=== PATIENT | female | born 1990 | race Hispanic/Latino ===

== ENCOUNTER 2017-04-23 12:04 | Emergency (ER) | payer MEDICAID, OTHER ==
[~2017-04-23 12:04] MED LIST: IBUP-2070 PO; IRON-10 PO
[2017-04-23 12:38] LABS: APPEARANCE,URINE Cloudy (CLEAR); BILIRUBIN,URINE Negative (NEGATIVE); COLOR,URINE Dark Yellow (YELLOW); GLUCOSE, URINE (UA) Negative (NEGATIVE); KETONES,URINE Trace mg/dL (NEGATIVE); LEUKOCYTE ESTERASE ,URINE Small (NEGATIVE); NITRATE,URINE Negative (NEGATIVE); OCCULT BLOOD,URINE Negative (NEGATIVE); PH,URINE 5.5 (5.0-8.0); PROTEIN,URINE POS 1+ (NEGATIVE)
[2017-04-23 12:43] LABS: HCG,QUAL RESULT POSITIVE (NEGATIVE)
[2017-04-23] MEDS ORDERED: ONDANSETRON HCL 4 MG/2 ML VIAL ONE (12:50)
[2017-04-23] MEDS ORDERED: ACETAMINOPHEN 325 MG TAB ONE (12:50)
[2017-04-23 12:52] LABS: BACTERIA,URINE Moderate /HPF (None Seen); MUCUS,URINE Moderate LPF (None Seen); SQUAMOUS EPITHELIAL CELL,UR Few /LPF (0-2); WBC,URINE 0-1 /HPF (0-1)
[2017-04-23 13:17] LABS: BASOPHILS % (AUTO) 0.4 % (0.0-5.0); EOSINOPHILS % (AUTO) 0.3 % (0.0-8.0); HEMATOCRIT 41.2 % (36-48); LYMPHOCYTES % (AUTO) 16.2 % (21.0-51.0); MEAN CORPUSCULAR HEMOGLOBIN 25.8 pg (27.0-33.0); MEAN CORPUSCULAR HGB CONC 33.6 g/dL (32.0-36.0); MEAN CORPUSCULAR VOLUME 76.8 fL (79-99); MONOCYTES % (AUTO) 6.8 % (3.0-13.0); NEUTROPHILS % (AUTO) 76.3 % (40.0-77.0); NUCLEATED RED BLOOD CELLS 0.1 % (0.0-0.19); PLATELET COUNT (AUTO) 289 K/uL (130-400); RED BLOOD CELL COUNT(AUTO) 5.37 MIL/uL (4.00-5.50); WHITE BLOOD COUNT (AUTO) 7.1 K/uL (4.8-10.8)
[2017-04-23 13:25] LABS: CREATININE 0.6 mg/dL (0.5-1.5)
[2017-04-23 13:51] LABS: BILIRUBIN,TOTAL 0.2 mg/dL (0.2-1.0); TOTAL PROTEIN, SERUM 7.5 g/dL (6.0-8.3)
== END 2017-04-23 16:38 | disposition home or self-care (01) ==
LOC: EDH 12:04
DX: O26.611 Liver and biliary tract disorders in pregnancy, first trimester (principal); K80.20 Calculus of gallbladder without cholecystitis without obstruction; R79.89 Other specified abnormal findings of blood chemistry; Z79.899 Other long term (current) drug therapy; Z3A.12 12 weeks gestation of pregnancy
CPT/HCPCS: 36415; 76705; 76801; 80053; 81001; 81025; 83690; 84702; 85025; 96374; 99285; J2405

== ENCOUNTER 2017-05-18 17:03 | Emergency (ER) | payer MEDICAID, OTHER ==
[2017-05-18 18:01] LABS: RAPID GROUP A STREP NEGATIVE (NEGATIVE)
[2017-05-18 18:04] LABS: BILIRUBIN,URINE Negative (NEGATIVE); COLOR,URINE Yellow (YELLOW); GLUCOSE, URINE (UA) Negative (NEGATIVE); KETONES,URINE Trace mg/dL (NEGATIVE); LEUKOCYTE ESTERASE ,URINE Trace (NEGATIVE); NITRATE,URINE Negative (NEGATIVE); OCCULT BLOOD,URINE Negative (NEGATIVE); PH,URINE 6.5 (5.0-8.0); PROTEIN,URINE Trace (NEGATIVE)
[2017-05-18 18:13] LABS: APPEARANCE,URINE SLIGHTLY CLOUDY (CLEAR)
[2017-05-18 18:14] LABS: HCG,QUAL RESULT POSITIVE (NEGATIVE)
[2017-05-18 18:16] LABS: RBC,URINE 0-1 /HPF (0-1)
[2017-05-18 18:17] LABS: BACTERIA,URINE Few /HPF (None Seen); MUCUS,URINE Moderate LPF (None Seen); SQUAMOUS EPITHELIAL CELL,UR Moderate /LPF (0-2)
== END 2017-05-18 18:53 | disposition home or self-care (01) ==
LOC: EDH 17:03
DX: J01.10 Acute frontal sinusitis, unspecified (principal); R50.81 Fever presenting with conditions classified elsewhere; R05 Cough; J02.9 Acute pharyngitis, unspecified; M79.1 Myalgia
CPT/HCPCS: 81001; 81025; 87804; 87880

== ENCOUNTER 2017-06-13 04:50 | Emergency (ER) | payer MEDICAID, OTHER ==
[2017-06-13 05:27] LABS: BASOPHILS % (AUTO) 0.3 % (0.0-5.0); EOSINOPHILS % (AUTO) 0.3 % (0.0-8.0); HEMATOCRIT 37.4 % (36-48); MEAN CORPUSCULAR HEMOGLOBIN 26.5 pg (27.0-33.0); MEAN CORPUSCULAR HGB CONC 33.5 g/dL (32.0-36.0); MONOCYTES % (AUTO) 7.4 % (3.0-13.0); PLATELET COUNT (AUTO) 270 K/uL (130-400); RED BLOOD CELL COUNT(AUTO) 4.74 MIL/uL (4.00-5.50)
[2017-06-13 05:32] LABS: CREATININE 0.5 mg/dL (0.5-1.5); POTASSIUM 3.6 mmol/L (3.5-5.1)
[2017-06-13 05:36] LABS: ALBUMIN 2.6 g/dL (3.5-5.0); BILIRUBIN,TOTAL 0.2 mg/dL (0.2-1.0)
[2017-06-13 06:15] LABS: BILIRUBIN,URINE Negative (NEGATIVE); COLOR,URINE Yellow (YELLOW); GLUCOSE, URINE (UA) Negative (NEGATIVE); KETONES,URINE Negative (NEGATIVE); LEUKOCYTE ESTERASE ,URINE Negative (NEGATIVE); NITRATE,URINE Negative (NEGATIVE); OCCULT BLOOD,URINE Negative (NEGATIVE); PH,URINE 5.5 (5.0-8.0); PROTEIN,URINE Trace (NEGATIVE)
[2017-06-13 06:19] LABS: APPEARANCE,URINE CLEAR (CLEAR)
== END 2017-06-13 09:44 | disposition home or self-care (01) ==
LOC: EDH 04:50
DX: O99.612 Diseases of the digestive system complicating pregnancy, second trimester (principal); K80.20 Calculus of gallbladder without cholecystitis without obstruction; Z98.890 Other specified postprocedural states; Z3A.01 Less than 8 weeks gestation of pregnancy
CPT/HCPCS: 36415; 76705; 80053; 81003; 82150; 83690; 85025; 93005

== ENCOUNTER 2017-12-25 11:08 | Emergency (ER) | payer OTHER ==
[~2017-12-25 11:08] MED LIST changes: +PREN-154 PO
== END 2017-12-25 11:56 | disposition home or self-care (01) ==
LOC: EDH 11:08
DX: J01.10 Acute frontal sinusitis, unspecified (principal)
CPT/HCPCS: 99281

== ENCOUNTER 2018-07-26 17:45 | Emergency (ER) | payer MEDICAID, OTHER ==
[2018-07-26] MEDS ORDERED: ONDANSETRON HCL 4 MG/2 ML VIAL ONE (18:05)
[2018-07-26 18:29] LABS: APPEARANCE,URINE Clear (CLEAR); BILIRUBIN,URINE Negative (NEGATIVE); COLOR,URINE Yellow (YELLOW); GLUCOSE, URINE (UA) Negative (NEGATIVE); KETONES,URINE 15 mg/dL (NEGATIVE); LEUKOCYTE ESTERASE ,URINE Negative (NEGATIVE); NITRATE,URINE Negative (NEGATIVE); OCCULT BLOOD,URINE Negative (NEGATIVE); PH,URINE 5.5 (5.0-8.0); PROTEIN,URINE Trace mg/dL (NEGATIVE)
[2018-07-26 18:30] LABS: HCG,QUAL RESULT NEGATIVE (NEGATIVE)
[2018-07-26 18:34] LABS: BASOPHILS % (AUTO) 0.2 % (0.0-5.0); HEMATOCRIT 45.4 % (36-48); LYMPHOCYTES % (AUTO) 7.5 % (21.0-51.0); MEAN CORPUSCULAR HEMOGLOBIN 26.8 pg (27.0-33.0); MEAN CORPUSCULAR HGB CONC 33.2 g/dL (32.0-36.0); MEAN CORPUSCULAR VOLUME 80.6 fL (79-99); MONOCYTES % (AUTO) 5.9 % (3.0-13.0); NEUTROPHILS % (AUTO) 85.4 % (40.0-77.0); NUCLEATED RED BLOOD CELLS 0.1 % (0.0-0.19); PLATELET COUNT (AUTO) 240 K/uL (130-400); RED BLOOD CELL COUNT(AUTO) 5.63 MIL/uL (4.00-5.50); WHITE BLOOD COUNT (AUTO) 7.7 K/uL (4.8-10.8)
[2018-07-26 18:43] LABS: BACTERIA,URINE Rare /HPF (None Seen); RBC,URINE 0-1 /HPF (0-1); SQUAMOUS EPITHELIAL CELL,UR Few /HPF (0-2); WBC,URINE 0-1 /HPF (0-1)
[2018-07-26 18:48] LABS: CREATININE 0.6 mg/dL (0.5-1.5); POTASSIUM 3.7 mmol/L (3.5-5.1)
[2018-07-26 18:54] LABS: BILIRUBIN,TOTAL 0.3 mg/dL (0.2-1.0); TOTAL PROTEIN, SERUM 8.2 g/dL (6.0-8.3)
== END 2018-07-26 19:42 | disposition home or self-care (01) ==
LOC: EDH 17:45
DX: J10.1 Influenza due to other identified influenza virus with other respiratory manifestations (principal)
CPT/HCPCS: 36415; 76705; 80053; 81001; 81025; 83690; 85025; 87040; 87804 ×2; 96361; 96374; 99285; J2405

== ENCOUNTER 2018-10-25 15:20 | Emergency (ER) | payer MEDICAID, OTHER ==
[2018-10-25] MEDS ORDERED: FAMOTIDINE/PF 20 MG/2 ML VIAL IV ONE (15:48)
[2018-10-25] MEDS ORDERED: ONDANSETRON ODT 4 MG TAB ONE (15:48)
[2018-10-25] MEDS ORDERED: HYOSCYAMINE SULFATE 0.125 MG TAB.SUBL SL ONE (15:48)
[2018-10-25] MEDS ORDERED: ONDANSETRON HCL 4 MG/2 ML VIAL ONE (15:49)
[2018-10-25] MEDS ORDERED: SODIUM CHLORIDE 0.9% 1000ML 1,000 ML IV ONE (15:50)
[2018-10-25 15:51] LABS: BASOPHILS % (AUTO) 0.4 % (0.0-5.0); HEMATOCRIT 44.1 % (36-48); LYMPHOCYTES % (AUTO) 17.1 % (21.0-51.0); MEAN CORPUSCULAR HEMOGLOBIN 26.9 pg (27.0-33.0); MEAN CORPUSCULAR HGB CONC 33.6 g/dL (32.0-36.0); NEUTROPHILS % (AUTO) 73.5 % (40.0-77.0); PLATELET COUNT (AUTO) 275 K/uL (130-400); RED BLOOD CELL COUNT(AUTO) 5.51 MIL/uL (4.00-5.50); RED CELL DISTRIBUTION WIDTH 14.2 % (11.0-15.5); WHITE BLOOD COUNT (AUTO) 5.9 K/uL (4.8-10.8)
[2018-10-25 16:02] LABS: CREATININE 0.7 mg/dL (0.5-1.5); POTASSIUM 3.3 mmol/L (3.5-5.1)
[2018-10-25 16:02] LABS: APPEARANCE,URINE SL CLOUDY (CLEAR); BILIRUBIN,URINE NEGATIVE (NEGATIVE); COLOR,URINE YELLOW (YELLOW); GLUCOSE, URINE (UA) NEGATIVE (NEGATIVE); KETONES,URINE NEGATIVE (NEGATIVE); LEUKOCYTE ESTERASE ,URINE NEGATIVE (NEGATIVE); NITRATE,URINE NEGATIVE (NEGATIVE); OCCULT BLOOD,URINE NEGATIVE (NEGATIVE); PROTEIN,URINE NEGATIVE (NEGATIVE)
[2018-10-25 16:06] LABS: ALBUMIN 3.6 g/dL (3.5-5.0); BILIRUBIN,DIRECT 0.1 mg/dL (0.0-0.3); BILIRUBIN,TOTAL 0.3 mg/dL (0.2-1.0); TOTAL PROTEIN, SERUM 7.8 g/dL (6.0-8.3)
[2018-10-25 16:25] LABS: BACTERIA,URINE Few /HPF (None Seen); RBC,URINE 0-1 /HPF (0-1); SQUAMOUS EPITHELIAL CELL,UR Moderate /HPF (0-2); WBC,URINE 0-1 /HPF (0-1)
[2018-10-25 16:26] LABS: MUCUS,URINE Few LPF (None Seen)
[2018-10-25] MEDS ORDERED: KETOROLAC TROMETHAMINE 30MG/ML ONE (17:07)
== END 2018-10-25 18:31 | disposition home or self-care (01) ==
LOC: EDH 15:20
DX: K52.9 Noninfective gastroenteritis and colitis, unspecified (principal); E86.0 Dehydration
CPT/HCPCS: 36415; 80048; 80076; 81001; 81025; 83690; 85025; 96361; 96374; 96375; 99285; J1885; J2405; J3490; J7030

== ENCOUNTER 2018-12-21 13:34 | Emergency (ER) | payer MEDICAID, OTHER ==
[2018-12-21 14:18] LABS: APPEARANCE,URINE Cloudy (CLEAR); BILIRUBIN,URINE Negative (NEGATIVE); COLOR,URINE Yellow (YELLOW); GLUCOSE, URINE (UA) Negative (NEGATIVE); KETONES,URINE Negative (NEGATIVE); LEUKOCYTE ESTERASE ,URINE Trace (NEGATIVE); NITRATE,URINE Negative (NEGATIVE); OCCULT BLOOD,URINE Negative (NEGATIVE); PH,URINE 7.5 (5.0-8.0); PROTEIN,URINE Negative (NEGATIVE)
[2018-12-21 14:22] LABS: BASOPHILS % (AUTO) 0.4 % (0.0-5.0); EOSINOPHILS % (AUTO) 2.3 % (0.0-8.0); HEMATOCRIT 43.6 % (36-48); MEAN CORPUSCULAR HGB CONC 33.8 g/dL (32.0-36.0); MEAN CORPUSCULAR VOLUME 80.1 fL (79-99); MONOCYTES % (AUTO) 9.9 % (3.0-13.0); NEUTROPHILS % (AUTO) 64.4 % (40.0-77.0); NUCLEATED RED BLOOD CELLS 0.1 % (0.0-0.19); PLATELET COUNT (AUTO) 254 K/uL (130-400); RED BLOOD CELL COUNT(AUTO) 5.44 MIL/uL (4.00-5.50); RED CELL DISTRIBUTION WIDTH 14.3 % (11.0-15.5); WHITE BLOOD COUNT (AUTO) 5.6 K/uL (4.8-10.8)
[2018-12-21] MEDS ORDERED: KETOROLAC TROMETHAMINE 30MG/ML ONE (14:26)
[2018-12-21 14:27] LABS: HCG,QUAL RESULT NEGATIVE (NEGATIVE)
[2018-12-21] MEDS ORDERED: SODIUM CHLORIDE 0.9% 1000ML 1,000 ML IV ONE (14:27)
[2018-12-21 14:28] LABS: CREATININE 0.7 mg/dL (0.5-1.5); POTASSIUM 3.7 mmol/L (3.5-5.1)
[2018-12-21 14:34] LABS: ALBUMIN 3.8 g/dL (3.5-5.0); BILIRUBIN,DIRECT 0.1 mg/dL (0.0-0.3); BILIRUBIN,TOTAL 0.2 mg/dL (0.2-1.0); TOTAL PROTEIN, SERUM 8.3 g/dL (6.0-8.3)
[2018-12-21 14:37] LABS: BACTERIA,URINE Rare /HPF (None Seen); MUCUS,URINE Few LPF (None Seen); RBC,URINE 0-1 /HPF (0-1); SQUAMOUS EPITHELIAL CELL,UR Moderate /HPF (0-2); WBC,URINE 0-1 /HPF (0-1); YEAST,URINE BUDDING Few /HPF (None Seen)
[2018-12-21] MEDS ORDERED: FAMOTIDINE/PF 20 MG/2 ML VIAL IV ONE (15:08)
[2018-12-21] MEDS ORDERED: HYOSCYAMINE SULFATE 0.125 MG TAB.SUBL SL ONE (15:08)
[2018-12-21] MEDS ORDERED: ORPHENADRINE CITRATE 30 MG/ML ML ONE (15:08)
[2018-12-21] MEDS ORDERED: IOHEXOL-350 75 ML VIAL IV ONE (16:36)
== END 2018-12-21 18:49 | disposition home or self-care (01) ==
LOC: EDH 13:34
DX: M62.830 Muscle spasm of back (principal); R42 Dizziness and giddiness; R30.0 Dysuria
CPT/HCPCS: 36415; 71046; 71275; 80048; 80076; 81001; 81025; 83690; 85025; 85378; 96361; 96374; 96375; 99285; J1885; J2360; J3490; J7030; Q9967

== ENCOUNTER 2019-04-16 05:00 | Emergency (ER) | payer MEDICAID, OTHER ==
[2019-04-16] MEDS ORDERED: ONDANSETRON HCL 4 MG/2 ML VIAL ONE (05:30)
[2019-04-16] MEDS ORDERED: SODIUM CHLORIDE 0.9% 1000ML 1,000 ML IV ONE (05:30)
[2019-04-16] MEDS ORDERED: KETOROLAC TROMETHAMINE 15MG/ML ONE (05:30)
[2019-04-16 05:31] LABS: BASOPHILS % (AUTO) 0.4 % (0.0-5.0); EOSINOPHILS % (AUTO) 1.2 % (0.0-8.0); HEMATOCRIT 46.2 % (36-48); LYMPHOCYTES % (AUTO) 33.3 % (21.0-51.0); MEAN CORPUSCULAR HEMOGLOBIN 25.9 pg (27.0-33.0); MEAN CORPUSCULAR HGB CONC 31.6 g/dL (32.0-36.0); MEAN CORPUSCULAR VOLUME 82.1 fL (79-99); MONOCYTES % (AUTO) 7.8 % (3.0-13.0); PLATELET COUNT (AUTO) 296 K/uL (130-400); RED BLOOD CELL COUNT(AUTO) 5.63 MIL/uL (4.00-5.50); RED CELL DISTRIBUTION WIDTH 14.1 % (11.0-15.5); WHITE BLOOD COUNT (AUTO) 6.8 K/uL (4.8-10.8)
[2019-04-16 05:41] LABS: CREATININE 0.8 mg/dL (0.5-1.5); POTASSIUM 3.5 mmol/L (3.5-5.1)
[2019-04-16 05:46] LABS: ALBUMIN 3.8 g/dL (3.5-5.0); BILIRUBIN,TOTAL 0.2 mg/dL (0.2-1.0); TOTAL PROTEIN, SERUM 8.2 g/dL (6.0-8.3)
[2019-04-16] MEDS ORDERED: LORAZEPAM 2 MG/ML 1 ML VIAL ONE (06:09)
[2019-04-16] MEDS ORDERED: MORPHINE SULFATE 4 MG/1ML SYG ONE ×2 (06:29→06:58)
== END 2019-04-16 07:35 | disposition home or self-care (01) ==
LOC: EDH 05:00
DX: K80.20 Calculus of gallbladder without cholecystitis without obstruction (principal); Z98.890 Other specified postprocedural states
CPT/HCPCS: 36415; 76705; 80053; 81025; 83690; 85025; 96374; 96375; 99285; J1885; J2060; J2270 ×2; J2405; J7030

== ENCOUNTER 2019-04-24 02:19 | Emergency (ER) | payer MEDICAID, OTHER ==
[2019-04-24] MEDS ORDERED: SODIUM CHLORIDE 0.9% 1000ML 2,000 ML IV ONE (03:09)
[2019-04-24] MEDS ORDERED: ONDANSETRON HCL 4 MG/2 ML VIAL ONE (03:12)
[2019-04-24] MEDS ORDERED: FAMOTIDINE/PF 20 MG/2 ML VIAL IV ONE (03:13)
[2019-04-24 03:19] LABS: BASOPHILS % (AUTO) 0.4 % (0.0-5.0); EOSINOPHILS % (AUTO) 1.4 % (0.0-8.0); HEMATOCRIT 43.3 % (36-48); MEAN CORPUSCULAR HEMOGLOBIN 26.1 pg (27.0-33.0); MEAN CORPUSCULAR HGB CONC 32.1 g/dL (32.0-36.0); MEAN CORPUSCULAR VOLUME 81.2 fL (79-99); MONOCYTES % (AUTO) 6.9 % (3.0-13.0); PLATELET COUNT (AUTO) 286 K/uL (130-400); RED BLOOD CELL COUNT(AUTO) 5.33 MIL/uL (4.00-5.50); RED CELL DISTRIBUTION WIDTH 14.1 % (11.0-15.5); WHITE BLOOD COUNT (AUTO) 6.9 K/uL (4.8-10.8)
[2019-04-24 03:27] LABS: BILIRUBIN,URINE Negative (NEGATIVE); COLOR,URINE Yellow (YELLOW); GLUCOSE, URINE (UA) Negative (NEGATIVE); KETONES,URINE Negative (NEGATIVE); LEUKOCYTE ESTERASE ,URINE Trace (NEGATIVE); NITRATE,URINE Negative (NEGATIVE); OCCULT BLOOD,URINE Negative (NEGATIVE); PH,URINE 5.5 (5.0-8.0); PROTEIN,URINE Negative (NEGATIVE)
[2019-04-24 03:29] LABS: APPEARANCE,URINE HAZY (CLEAR); HCG,QUAL RESULT NEGATIVE (NEGATIVE)
[2019-04-24 03:36] LABS: CREATININE 0.7 mg/dL (0.5-1.5); POTASSIUM 3.3 mmol/L (3.5-5.1)
[2019-04-24 03:40] LABS: ALBUMIN 3.6 g/dL (3.5-5.0); BACTERIA,URINE Few /HPF (None Seen); BILIRUBIN,TOTAL 0.3 mg/dL (0.2-1.0); MUCUS,URINE Many LPF (None Seen); RBC,URINE 0-1 /HPF (0-1); TOTAL PROTEIN, SERUM 7.8 g/dL (6.0-8.3); YEAST,URINE BUDDING Moderate /HPF (None Seen)
[2019-04-24] MEDS ORDERED: KETOROLAC TROMETHAMINE 60 MG/2 ML VIAL ONE (03:42)
[2019-04-24] MEDS ORDERED: LIDOCAINE HCL 2% VISCOUS 15 ML UDCUP ONE (03:42)
[2019-04-24] MEDS ORDERED: MAG HYDROX/AL HYDROX/SIMETH ES 30 ML SUSP UDCUP ONE (03:42)
[2019-04-24 03:45] LABS: INR 0.95 (0.85-1.15); PARTIAL THROMBOPLASTIN TIME 26.6 SEC (26.3-35.5)
== END 2019-04-24 05:27 | disposition home or self-care (01) ==
LOC: EDH 02:19
DX: K83.9 Disease of biliary tract, unspecified (principal); R11.10 Vomiting, unspecified; Z98.890 Other specified postprocedural states
CPT/HCPCS: 36415; 76705; 80053; 81001; 81025; 83690; 85025; 85610; 85730; 96361; 96374; 96375; 99285; J1885; J2405; J3490; J7030

== ENCOUNTER 2019-05-20 08:50 | Emergency (ER) | payer MEDICAID, OTHER ==
[2019-05-20 09:43] LABS: BASOPHILS % (AUTO) 0.1 % (0.0-5.0); EOSINOPHILS % (AUTO) 0.6 % (0.0-8.0); HEMATOCRIT 44.5 % (36-48); MEAN CORPUSCULAR HEMOGLOBIN 26.4 pg (27.0-33.0); MEAN CORPUSCULAR HGB CONC 32.6 g/dL (32.0-36.0); MEAN CORPUSCULAR VOLUME 80.9 fL (79-99); NEUTROPHILS % (AUTO) 81.9 % (40.0-77.0); PLATELET COUNT (AUTO) 279 K/uL (130-400); WHITE BLOOD COUNT (AUTO) 9.3 K/uL (4.8-10.8)
[2019-05-20 09:50] LABS: CREATININE 0.7 mg/dL (0.5-1.5); POTASSIUM 3.8 mmol/L (3.5-5.1)
[2019-05-20 09:54] LABS: ALBUMIN 3.7 g/dL (3.5-5.0); BILIRUBIN,TOTAL 0.4 mg/dL (0.2-1.0); TOTAL PROTEIN, SERUM 7.7 g/dL (6.0-8.3)
[2019-05-20] MEDS ORDERED: SODIUM CHLORIDE 0.9% 1000ML 1,000 ML IV ONE (10:31)
[2019-05-20 10:35] LABS: BILIRUBIN,URINE Negative (NEGATIVE); COLOR,URINE Yellow (YELLOW); GLUCOSE, URINE (UA) Negative (NEGATIVE); KETONES,URINE Negative (NEGATIVE); LEUKOCYTE ESTERASE ,URINE Negative (NEGATIVE); NITRATE,URINE Negative (NEGATIVE); OCCULT BLOOD,URINE Negative (NEGATIVE); PROTEIN,URINE Negative (NEGATIVE); UROBILINOGEN,URINE 0.2 mg/dL (0.2-1.0)
[2019-05-20 10:37] LABS: AMPHET/METH SCREEN,URINE NEGATIVE (NEGATIVE); BARBITURATE SCREEN, URINE NEGATIVE (NEGATIVE); BENZODIAZEPINES SCREEN,URINE NEGATIVE (NEGATIVE); CANNABINOID SCREEN,URINE NEGATIVE (NEGATIVE); COCAINE SCREEN,URINE NEGATIVE (NEGATIVE); OPIATE SCREEN,URINE NEGATIVE (NEGATIVE); PHENCYCLIDINE SCREEN,URINE NEGATIVE (NEGATIVE)
[2019-05-20 10:46] LABS: APPEARANCE,URINE Clear (CLEAR)
[2019-05-20 10:47] LABS: HCG,QUAL RESULT NEGATIVE (NEGATIVE)
== END 2019-05-20 11:27 | disposition home or self-care (01) ==
LOC: EDH 08:50
DX: K80.66 Calculus of gallbladder and bile duct with acute and chronic cholecystitis without obstruction (principal); Z98.890 Other specified postprocedural states
CPT/HCPCS: 36415; 80053; 80305; 81003; 81025; 83690; 85025; 96372; 96374; 96375; 99284; J7030

== ENCOUNTER 2019-06-25 02:34 | Inpatient (IN) | payer OTHER ==
[~2019-06-25] VITALS: Ht 160 cm; Wt 104.5 kg
[2019-06-25 03:09] LABS: APPEARANCE,URINE Clear (CLEAR); BILIRUBIN,URINE Negative (NEGATIVE); COLOR,URINE Yellow (YELLOW); GLUCOSE, URINE (UA) Negative (NEGATIVE); KETONES,URINE Negative (NEGATIVE); LEUKOCYTE ESTERASE ,URINE Trace (NEGATIVE); NITRATE,URINE Negative (NEGATIVE); OCCULT BLOOD,URINE Negative (NEGATIVE); PH,URINE 5.5 (5.0-8.0); PROTEIN,URINE Negative (NEGATIVE)
[2019-06-25 03:12] LABS: HCG,QUAL RESULT NEGATIVE (NEGATIVE)
[2019-06-25 03:15] LABS: BASOPHILS % (AUTO) 0.3 % (0.0-5.0); EOSINOPHILS % (AUTO) 1.3 % (0.0-8.0); HEMATOCRIT 43.1 % (36-48); LYMPHOCYTES % (AUTO) 35.2 % (21.0-51.0); MEAN CORPUSCULAR HEMOGLOBIN 26.4 pg (27.0-33.0); MEAN CORPUSCULAR HGB CONC 32.3 g/dL (32.0-36.0); MEAN CORPUSCULAR VOLUME 81.9 fL (79-99); MONOCYTES % (AUTO) 7.7 % (3.0-13.0); PLATELET COUNT (AUTO) 321 K/uL (130-400); RED BLOOD CELL COUNT(AUTO) 5.26 MIL/uL (4.00-5.50); RED CELL DISTRIBUTION WIDTH 13.9 % (11.0-15.5); WHITE BLOOD COUNT (AUTO) 6.1 K/uL (4.8-10.8)
[2019-06-25] MEDS ORDERED: FAMOTIDINE/PF 20 MG/2 ML VIAL IV ONE (03:15)
[2019-06-25] MEDS ORDERED: ONDANSETRON HCL 4 MG/2 ML VIAL ONE (03:15)
[2019-06-25] MEDS ORDERED: KETOROLAC TROMETHAMINE 30MG/ML ONE ×2 (03:15→14:38)
[2019-06-25] MEDS ORDERED: SODIUM CHLORIDE 0.9% 500ML 500 ML IV ONE (03:16)
[2019-06-25 03:21] LABS: BACTERIA,URINE Few /HPF (None Seen); MUCUS,URINE Rare LPF (None Seen); RBC,URINE 0-1 /HPF (0-1)
[2019-06-25 03:23] LABS: CREATININE 0.8 mg/dL (0.5-1.5); POTASSIUM 3.6 mmol/L (3.5-5.1)
[2019-06-25 03:28] LABS: ALBUMIN 3.7 g/dL (3.5-5.0); BILIRUBIN,TOTAL 0.2 mg/dL (0.2-1.0)
[2019-06-25] MEDS ORDERED: DICYCLOMINE HCL 10 MG/ML 2ML AMP IM ONE (04:08)
[2019-06-25] MEDS ORDERED: MORPHINE SULFATE 4 MG/1ML SYG ONE (05:02)
[2019-06-25] MEDS ORDERED: ONDANSETRON HCL 4 MG/2 ML VIAL IV PRN (05:45)
[2019-06-25] MEDS ORDERED: SODIUM CHLORIDE 0.9% 1000ML 1,000 ML IV SCH (05:45)
[2019-06-25] MEDS ORDERED: ACETAMINOPHEN 325 MG TAB PO PRN ×2 (05:45)
[2019-06-25] MEDS ORDERED: LACTULOSE 20 GM/30 ML UDCUP PO PRN (05:45)
[2019-06-25] MEDS ORDERED: CEFTRIAXONE SODIUM 1 GM ONE (06:20)
[2019-06-25] MEDS ORDERED: MORPHINE SULFATE 2 MG/ML 1ML SYG ONE (06:20)
[2019-06-25] MEDS ORDERED: SODIUM CHLORIDE 0.9% 1000ML 1,000 ML IV ONE (06:20)
[2019-06-25] MEDS: CEFTRIAXONE SODIUM 1 GM IV SCH (06:30)
[2019-06-25 08:00] VITALS: BP 106/70
[2019-06-25] MEDS: MORPHINE SULFATE 2 MG/ML 1ML SYG IV PRN (08:27)
[2019-06-25] MEDS: FAMOTIDINE/PF 20 MG/2 ML VIAL IV SCH ×2 (08:40→21:48)
[2019-06-25] MEDS: ENOXAPARIN SODIUM 40 MG/0.4 ML SYRINGE SQ SCH (09:00)
[2019-06-25 12:00] VITALS: BP 117/67
[2019-06-25] MEDS: SODIUM CHLORIDE 0.9% 1000ML 1,000 ML IV SCH (12:15)
[2019-06-25] MEDS: HYDROMORPHONE HCL 0.5 MG/0.5 ML ML IVP PRN ×2 (13:00→21:48)
[2019-06-25 16:00] VITALS: BP 114/68
--- NOTE | 2019-06-25 17:02 | NUR ---
D/C PLAN CM performed chart review. Attempted to call phone number on next of kin. No answer, unable to leave voicemail. Per medical record, pt lives alone. Ind. with ADL's. Has family support. Plan to home. No needs identified per chart review. CM to f/u. Addendum: 06/25/19 at 1704 by BANDAR CLEMENS CM Amended: Links added.
[2019-06-25 19:00] VITALS: BP 112/73
[2019-06-26] VITALS: BP 125/74
[2019-06-26] MEDS: KETOROLAC TROMETHAMINE 30MG/ML IM PRN ×3 (00:30→20:41)
[2019-06-26] MEDS: SODIUM CHLORIDE 0.9% 1000ML 1,000 ML IV SCH ×2 (03:53→12:32)
[2019-06-26] MEDS: HYDROMORPHONE HCL 0.5 MG/0.5 ML ML IVP PRN (03:55)
[2019-06-26 04:00] VITALS: BP 121/74
[2019-06-26 05:47] LABS: BASOPHILS % (AUTO) 0.2 % (0.0-5.0); EOSINOPHILS % (AUTO) 2.4 % (0.0-8.0); HEMATOCRIT 39.8 % (36-48); LYMPHOCYTES % (AUTO) 36.5 % (21.0-51.0); MEAN CORPUSCULAR HEMOGLOBIN 26.7 pg (27.0-33.0); MEAN CORPUSCULAR HGB CONC 32.2 g/dL (32.0-36.0); MEAN CORPUSCULAR VOLUME 83.1 fL (79-99); MONOCYTES % (AUTO) 7.7 % (3.0-13.0); PLATELET COUNT (AUTO) 278 K/uL (130-400); RED BLOOD CELL COUNT(AUTO) 4.79 MIL/uL (4.00-5.50); RED CELL DISTRIBUTION WIDTH 13.6 % (11.0-15.5)
[2019-06-26] MEDS ORDERED: METRONIDAZOLE 500MG/100ML BAG 100 ML IV SCH (06:00)
[2019-06-26] MEDS: CEFTRIAXONE SODIUM 1 GM IV SCH (06:05)
[2019-06-26 06:08] LABS: ALBUMIN 2.8 g/dL (3.5-5.0); BILIRUBIN,DIRECT 0.1 mg/dL (0.0-0.3); BILIRUBIN,TOTAL 0.4 mg/dL (0.2-1.0); CREATININE 0.7 mg/dL (0.5-1.5); POTASSIUM 4.5 mmol/L (3.5-5.1); TOTAL PROTEIN, SERUM 6.6 g/dL (6.0-8.3)
[2019-06-26 08:34] VITALS: BP 115/68
[2019-06-26] MEDS: ZOSYN 3.375GM+NS 50ML 50 ML IV SCH (09:15)
[2019-06-26] MEDS: FAMOTIDINE/PF 20 MG/2 ML VIAL IV SCH ×2 (09:16→20:40)
[2019-06-26] MEDS: ENOXAPARIN SODIUM 40 MG/0.4 ML SYRINGE SQ SCH (09:16)
[2019-06-26 12:00] VITALS: BP 99/54
[2019-06-26] MEDS: MORPHINE SULFATE 2 MG/ML 1ML SYG IV PRN ×2 (16:15→22:17)
[2019-06-26 17:52] VITALS: BP 129/74
[2019-06-26 19:00] VITALS: BP 127/76
--- NOTE | 2019-06-26 20:40 | NUR ---
PAIN SHIFT ASSESSMENT DONE, PLEASE REFER TO CHART. PT CLAIMS OF ABDOMINAL PAINS. MEDICATED WITH TORADOL IM. DUE IV MEDS ADMINISTERED AND CONTINUED IVF. INSTRUCTED TO BE NPO POST MN, VERBALIZES UNDERSTANDING. KEPT RESTED AND COMFORTALBE. CALL LIGHT WITHIN REACH. WILL RE-ASSESS PT. Addendum: 06/27/19 at 0056 by DONNY ENGLISH RN RN Amended: Links added.
--- NOTE | 2019-06-26 22:17 | NUR ---
PAIN PT CALLS FOR PAIN MEDICATION. PT VERBALIZES PAINS ON HER ABDOMINAL AREA. NO REPORTED NAUSEA AT THIS TIME. MEDICATED WITH MORPHINE IV. ENCOURAGED TO RELAX AND SLEEP. CALL LIGHT WITHIN REACH. RE-ITERATED FALL PRECAUTIONS. WILL RE-ASSESS PT.
[2019-06-27] VITALS (29 sets, daily range): BP systolic 26–139; BP diastolic 66–98
[2019-06-27] MEDS: ZOSYN 3.375GM+NS 50ML 50 ML IV SCH ×4 (00:07→23:53)
[2019-06-27] MEDS: HYDROMORPHONE HCL 0.5 MG/0.5 ML ML IVP PRN ×3 (00:08→19:08)
--- NOTE | 2019-06-27 00:08 | NUR ---
PAIN PT CALLS FOR PAIN MEDICATIONS, CLAIMS OF ABDOMINAL PAINS. MEDICATED WITH DILAUDID IV. KEPT RESTED AND COMFORTABLE. WILL RE-ASSESS PT. Addendum: 06/27/19 at 0105 by DONNY ENGLISH RN RN Amended: Links added.
[2019-06-27] MEDS: SODIUM CHLORIDE 0.9% 1000ML 1,000 ML IV SCH ×2 (01:43→23:54)
--- NOTE | 2019-06-27 02:00 | NUR ---
ROUNDS PT RESTING WELL, FAIRLY ASLEEP WITH RESPIRATIONS EVEN AND UNLABORED. NO NOTED DISTRESS. KEPT NPO. WILL MONITOR PT. CALL LIGHT WITHIN REACH.
[2019-06-27] MEDS: MORPHINE SULFATE 2 MG/ML 1ML SYG IV PRN ×2 (04:56→11:12)
--- NOTE | 2019-06-27 07:00 | NUR ---
OR SALINE LOCKED PT THEN TAKEN DOWN BY SX STAFF TO OR.
[2019-06-27 07:10] LABS: ALBUMIN 3.3 g/dL (3.5-5.0); BILIRUBIN,TOTAL 0.5 mg/dL (0.2-1.0); CREATININE 0.8 mg/dL (0.5-1.5); POTASSIUM 3.5 mmol/L (3.5-5.1); TOTAL PROTEIN, SERUM 7.2 g/dL (6.0-8.3)
--- NOTE | 2019-06-27 07:15 | NUR ---
NOTE PATIENT NOT IN THE ROOM. SHE IS GETTING LAPAROSCOPIC CHOLECYSTECTOMY DONE THIS AM. WILL ASSESS UPON RETURN.
[2019-06-27] MEDS ORDERED: LACTATED RINGERS 1000ML 1,000 ML IV ONE (07:19)
[2019-06-27] MEDS ORDERED: CEFAZOLIN SODIUM 1 GM VIAL ONE (07:22)
[2019-06-27] MEDS ORDERED: BUPIVACAINE/EPI/PF 0.5% 30ML VIAL IJ ONE (07:24)
[2019-06-27] MEDS ORDERED: BUPIVACAINE/PF 0.5% 30ML VIAL ONE (07:24)
[2019-06-27] MEDS ORDERED: LIDOCAINE PF 2% 5ML ABBOJECT ONE (07:30)
[2019-06-27] MEDS ORDERED: GLYCOPYRROLATE 1 MG/5 ML SYRINGE ONE (07:31)
[2019-06-27] MEDS ORDERED: PROPOFOL 10 MG/ML 20ML VIAL IV ONE (07:31)
[2019-06-27] MEDS ORDERED: NEOSTIGMINE 5MG/5ML SYR IV ONE (07:31)
[2019-06-27] MEDS ORDERED: DEXAMETHASONE SOD PHOSPHATE 10MG/ML 1ML VIAL ONE (07:31)
[2019-06-27] MEDS ORDERED: ROCURONIUM 10MG/1ML SYR 10 MG/ML ML ONE (07:32)
[2019-06-27] MEDS ORDERED: FENTANYL CITRATE PF 50 MCG/1 ML 2ML VIAL ONE ×2 (07:32→08:41)
[2019-06-27] MEDS ORDERED: MIDAZOLAM HCL 1 MG/ML 2ML VIAL ONE (07:32)
[2019-06-27] MEDS: ENOXAPARIN SODIUM 40 MG/0.4 ML SYRINGE SQ SCH (08:03)
[2019-06-27] MEDS ORDERED: MEPERIDINE-PF 25 MG/ML SYG ONE (09:36)
--- NOTE | 2019-06-27 10:20 | NUR ---
NOTE RETURNED FROM SURGERY AT THIS TIME. STABLE UPON RETURN. S/P LAP ROSANA. 4 SMALL DRESSINGS TO ABDOMEN D/I. BOWEL SOUNDS HYPOACTIVE. C/O ABDOMINAL DISCOMFORT. WILL MEDICATE FOR PAIN APPROPRIATELY. ALSO TOLD HER THAT ONCE SHE IS A LITTLE MORE STABLE FROM EFFECTS FROM ANESTHESIA SHE NEEDS TO GET OUT OF BED AND TRY TO WALK. WILL START DIET AND ADVANCE TOLERATED.
[2019-06-27] MEDS: FAMOTIDINE/PF 20 MG/2 ML VIAL IV SCH ×2 (10:26→20:34)
[2019-06-27] MEDS: KETOROLAC TROMETHAMINE 15MG/ML IV PRN ×2 (17:06→22:41)
--- NOTE | 2019-06-27 20:35 | NUR ---
MEDS SHIFT ASSESSMENT DONE, PLEASE REFER TO CHART. DUE MEDS ADMINISTERED, TOLERATED WELL. CALL LIGHT WITHIN REACH. WILL MONITOR PT. Addendum: 06/28/19 at 0225 by DONNY ENGLISH RN RN Amended: Links added.
--- NOTE | 2019-06-27 22:41 | NUR ---
PAIN PT CALLS FOR PAIN MEDICATION. MEDICATED WITH TORADOL IV. INSTRUCTED ON AMBULATION. VERBALIZES SHE IS AMBULATING GOING TO THE RESTROOM BUT REFUSES TO AMBULATE IN THE HALLWAY. WILL RE-ASSESS PT.
[2019-06-28] MEDS: HYDROMORPHONE HCL 0.5 MG/0.5 ML ML IVP PRN (00:49)
--- NOTE | 2019-06-28 00:49 | NUR ---
PAIN PT VERBALIZES ABDOMINAL PAINS, POST SX PAINS. STILL NO PASSAGE OF GAS BUT CLAIMS SHE IS BURPING. RE-ITERATED AMBULATION BUT DECLINED AT THIS TIME. MEDICATED WITH DILAUDID IV. KEPT COMFORTABLE IN BED. ENCOURAGED TO MOVE SIDE TO SIDE IN BED. WILL RE-ASSESS PT.
[2019-06-28 01:02] VITALS: BP 116/71
[2019-06-28] MEDS ORDERED: MORPHINE SULFATE 2 MG/ML 1ML SYG IVP PRN (03:00)
[2019-06-28 03:29] VITALS: BP 121/71
[2019-06-28] MEDS: SODIUM CHLORIDE 0.9% 1000ML 1,000 ML IV SCH (03:32)
[2019-06-28 04:17] LABS: BASOPHILS % (AUTO) 0.1 % (0.0-5.0); EOSINOPHILS % (AUTO) 1.9 % (0.0-8.0); HEMATOCRIT 38.7 % (36-48); LYMPHOCYTES % (AUTO) 12.7 % (21.0-51.0); MEAN CORPUSCULAR HEMOGLOBIN 26.4 pg (27.0-33.0); MEAN CORPUSCULAR HGB CONC 32.8 g/dL (32.0-36.0); MEAN CORPUSCULAR VOLUME 80.5 fL (79-99); MONOCYTES % (AUTO) 7.6 % (3.0-13.0); NEUTROPHILS % (AUTO) 77.3 % (40.0-77.0); PLATELET COUNT (AUTO) 281 K/uL (130-400); RED BLOOD CELL COUNT(AUTO) 4.81 MIL/uL (4.00-5.50); RED CELL DISTRIBUTION WIDTH 13.4 % (11.0-15.5); WHITE BLOOD COUNT (AUTO) 7.5 K/uL (4.8-10.8)
[2019-06-28 04:44] LABS: ALBUMIN 3.1 g/dL (3.5-5.0); BILIRUBIN,TOTAL 0.4 mg/dL (0.2-1.0); CREATININE 0.8 mg/dL (0.5-1.5); POTASSIUM 3.6 mmol/L (3.5-5.1); TOTAL PROTEIN, SERUM 6.9 g/dL (6.0-8.3)
--- NOTE | 2019-06-28 05:00 | NUR ---
ROUNDS PT RESTING WELL, FAIRLY ASLEEP. KEPT UNDISTURBED FOR NOW. FOR MORE CARE.
[2019-06-28 07:30] VITALS: BP 107/69
[2019-06-28] MEDS: ZOSYN 3.375GM+NS 50ML 50 ML IV SCH (08:30)
[2019-06-28] MEDS ORDERED: ACETAMINOPHEN-CODEINE 300/30MG TAB ONE (10:43)
[2019-06-28] MEDS: FAMOTIDINE/PF 20 MG/2 ML VIAL IV SCH (10:45)
[2019-06-28] MEDS: ENOXAPARIN SODIUM 40 MG/0.4 ML SYRINGE SQ SCH (10:45)
[2019-06-28 11:00] VITALS: BP 116/76
== END 2019-06-28 15:50 | disposition home or self-care (01) | DRG 418 ==
LOC: EDH 02:34 → OBSVTOIN 02:35 → EDHIP 02:35 → 3BH 08:04
PROVIDERS: ADMIT Internal Medicine; ATTEND Internal Medicine
PROC: 0FT44ZZ Resection of Gallbladder, Percutaneous Endoscopic Approach (ICD-10-PCS; 2019-06-27)
PROC: 0WQ0XZZ Repair Head, External Approach (ICD-10-PCS; principal; 2019-06-27 08:15)
DX: K80.00 Calculus of gallbladder with acute cholecystitis without obstruction (principal); Z68.41 Body mass index [BMI] 40.0-44.9, adult; S01.81XA Laceration without foreign body of other part of head, initial encounter; E66.01 Morbid (severe) obesity due to excess calories; Z90.49 Acquired absence of other specified parts of digestive tract
CPT/HCPCS: 36415; 76705; 78226; 80048; 80053; 80076; 81001; 81025; 83690; 85025; 87088; A9537; G0378; J0500; J0690; J0696; J1100; J1170; J1650; J1885; J2001; J2175; J2250; J2270; J2405; J2543; J2704; J2710; J3010; J3490; J7030; J7040; J7120

== ENCOUNTER 2020-09-11 16:35 | Emergency (ER) | payer MEDICAID, OTHER ==
[~2020-09-11] VITALS: Ht 160 cm; Wt 99.8 kg
[~2020-09-11 16:35] MED LIST changes: -IRON-10 PO; -PREN-154 PO
[2020-09-11 16:39] VITALS: BP 126/78
[2020-09-11 17:09] LABS: BASOPHILS % (AUTO) 0.3 % (0.0-5.0); EOSINOPHILS % (AUTO) 1.5 % (0.0-8.0); HEMATOCRIT 39.8 % (36-48); LYMPHOCYTES % (AUTO) 26.2 % (21.0-51.0); MEAN CORPUSCULAR HEMOGLOBIN 25.8 pg (27.0-33.0); MEAN CORPUSCULAR HGB CONC 31.2 g/dL (32.0-36.0); MEAN CORPUSCULAR VOLUME 82.9 fL (79-99); MONOCYTES % (AUTO) 10.6 % (3.0-13.0); PLATELET COUNT (AUTO) 277 K/uL (130-400); RED CELL DISTRIBUTION WIDTH 13.7 % (11.0-15.5); WHITE BLOOD COUNT (AUTO) 7.1 K/uL (4.8-10.8)
[2020-09-11 17:21] LABS: CREATININE 0.7 mg/dL (0.5-1.5); POTASSIUM 3.6 mmol/L (3.5-5.1)
[2020-09-11 17:26] LABS: ALBUMIN 3.2 g/dL (3.5-5.0); BILIRUBIN,TOTAL 0.2 mg/dL (0.2-1.0); TOTAL PROTEIN, SERUM 6.8 g/dL (6.0-8.3)
[2020-09-11] MEDS ORDERED: LORAZEPAM 1 MG TABLET PO ONE (18:00)
[2020-09-11] MEDS ORDERED: ALPR0.25 PO (18:03)
[2020-09-11 18:38] VITALS: BP 104/55
== END 2020-09-11 18:47 | disposition home or self-care (01) ==
LOC: EDH 16:35
DX: F41.9 Anxiety disorder, unspecified (principal); R07.89 Other chest pain; R00.2 Palpitations; E66.9 Obesity, unspecified; Z79.899 Other long term (current) drug therapy; Z79.1 Long term (current) use of non-steroidal anti-inflammatories (NSAID)
CPT/HCPCS: 36415; 71045; 80053; 81025; 84484; 85025; 93005

== ENCOUNTER 2021-08-28 10:20 | Emergency (ER) | payer OTHER ==
[~2021-08-28] VITALS: Ht 157.5 cm; Wt 104.3 kg
[~2021-08-28 10:20] MED LIST changes: +ALPR0.25 PO
[2021-08-28 10:49] LABS: BASOPHILS % (AUTO) 0.4 % (0.0-5.0); EOSINOPHILS % (AUTO) 1.5 % (0.0-8.0); HEMATOCRIT 41.4 % (36-48); LYMPHOCYTES % (AUTO) 31.3 % (21.0-51.0); MEAN CORPUSCULAR HGB CONC 31.9 g/dL (32.0-36.0); MEAN CORPUSCULAR VOLUME 81.7 fL (79-99); MONOCYTES % (AUTO) 7.6 % (3.0-13.0); NEUTROPHILS % (AUTO) 58.8 % (40.0-77.0); PLATELET COUNT (AUTO) 279 K/uL (130-400); RED BLOOD CELL COUNT(AUTO) 5.07 MIL/uL (4.00-5.50); RED CELL DISTRIBUTION WIDTH 13.9 % (11.0-15.5); WHITE BLOOD COUNT (AUTO) 5.4 K/uL (4.8-10.8)
[2021-08-28 10:54] LABS: APPEARANCE,URINE Cloudy (CLEAR); BILIRUBIN,URINE Negative (NEGATIVE); COLOR,URINE Yellow (YELLOW); GLUCOSE, URINE (UA) Negative (NEGATIVE); KETONES,URINE 40 mg/dL (NEGATIVE); LEUKOCYTE ESTERASE ,URINE Trace (NEGATIVE); NITRATE,URINE Negative (NEGATIVE); OCCULT BLOOD,URINE Negative (NEGATIVE); PH,URINE 5.5 (5.0-8.0); PROTEIN,URINE POS 1+ mg/dL (NEGATIVE)
[2021-08-28 10:58] LABS: CREATININE 0.6 mg/dL (0.5-1.5); POTASSIUM 3.1 mmol/L (3.5-5.1)
[2021-08-28 11:08] LABS: BACTERIA,URINE Few /HPF (None Seen); MUCUS,URINE Few LPF (None Seen); RBC,URINE 0-1 /HPF (0-1); SQUAMOUS EPITHELIAL CELL,UR Moderate /HPF (0-2)
[2021-08-28 11:26] LABS: ALBUMIN 3.4 g/dL (3.5-5.0); BILIRUBIN,TOTAL 0.4 mg/dL (0.2-1.0); TOTAL PROTEIN, SERUM 6.7 g/dL (6.0-8.3)
[2021-08-28] MEDS ORDERED: ACETAMINOPHEN 500 MG TABLET PO ONE (12:00)
[2021-08-28] MEDS ORDERED: PNV1TABL17 PO (14:04)
[2021-08-28] MEDS ORDERED: ACET-66 PO (14:04)
[2021-08-28 14:32] VITALS: BP 112/65
== END 2021-08-28 14:33 | disposition home or self-care (01) ==
LOC: EDH 10:20
DX: O26.891 Other specified pregnancy related conditions, first trimester (principal); R10.2 Pelvic and perineal pain; Z79.1 Long term (current) use of non-steroidal anti-inflammatories (NSAID); Z79.899 Other long term (current) drug therapy; Z90.49 Acquired absence of other specified parts of digestive tract; Z3A.01 Less than 8 weeks gestation of pregnancy
CPT/HCPCS: 36415; 76801; 80053; 81001; 83690; 84702; 85025; 87088

== ENCOUNTER 2021-10-05 21:48 | Emergency (ER) | payer MEDICAID, OTHER ==
[~2021-10-05] VITALS: Ht 170.2 cm; Wt 113.4 kg
[~2021-10-05 21:48] MED LIST changes: +ACET-66 PO; +PNV1TABL17 PO
[2021-10-05 23:19] LABS: APPEARANCE,URINE CLEAR (CLEAR); BILIRUBIN,URINE NEGATIVE (NEGATIVE); COLOR,URINE YELLOW (YELLOW); GLUCOSE, URINE (UA) NEGATIVE (NEGATIVE); KETONES,URINE NEGATIVE (NEGATIVE); LEUKOCYTE ESTERASE ,URINE LARGE (NEGATIVE); NITRATE,URINE NEGATIVE (NEGATIVE); OCCULT BLOOD,URINE NEGATIVE (NEGATIVE); PROTEIN,URINE TRACE mg/dL (NEGATIVE)
[2021-10-05 23:29] LABS: BASOPHILS % (AUTO) 0.3 % (0.0-5.0); EOSINOPHILS % (AUTO) 0.5 % (0.0-8.0); HEMATOCRIT 40.2 % (36-48); LYMPHOCYTES % (AUTO) 20.3 % (21.0-51.0); MEAN CORPUSCULAR HEMOGLOBIN 26.2 pg (27.0-33.0); MEAN CORPUSCULAR HGB CONC 32.1 g/dL (32.0-36.0); MEAN CORPUSCULAR VOLUME 81.7 fL (79-99); NEUTROPHILS % (AUTO) 70.4 % (40.0-77.0); PLATELET COUNT (AUTO) 265 K/uL (130-400); RED BLOOD CELL COUNT(AUTO) 4.92 MIL/uL (4.00-5.50); RED CELL DISTRIBUTION WIDTH 13.8 % (11.0-15.5); WHITE BLOOD COUNT (AUTO) 7.8 K/uL (4.8-10.8)
[2021-10-05] MEDS ORDERED: LIDOCAINE HCL 2% VISCOUS 15 ML UDCUP PO ONE (23:30)
[2021-10-05] MEDS ORDERED: MAG/ALUM/SIMETH 30 ML UDCUP PO ONE (23:30)
[2021-10-05 23:34] LABS: BACTERIA,URINE Moderate /HPF (None Seen); SQUAMOUS EPITHELIAL CELL,UR Moderate /HPF (0-2); YEAST,URINE BUDDING Rare /HPF (None Seen)
[2021-10-05 23:37] LABS: CREATININE 0.6 mg/dL (0.5-1.5); POTASSIUM 3.5 mmol/L (3.5-5.1)
[2021-10-06] MEDS ORDERED: FUROSEMIDE 40MG VIAL IV ONE
[2021-10-06 00:02] LABS: ALBUMIN 2.9 g/dL (3.5-5.0); BILIRUBIN,TOTAL 0.2 mg/dL (0.2-1.0); TOTAL PROTEIN, SERUM 7.1 g/dL (6.0-8.3)
[2021-10-06] MEDS ORDERED: ONDA-104 PO (05:15)
[2021-10-06] MEDS ORDERED: CEPH500B PO (05:15)
[2021-10-06 05:31] VITALS: BP 111/76
== END 2021-10-06 05:30 | disposition home or self-care (01) ==
LOC: EDH 21:48
DX: O23.41 Unspecified infection of urinary tract in pregnancy, first trimester (principal); N39.0 Urinary tract infection, site not specified; O21.9 Vomiting of pregnancy, unspecified; Z3A.10 10 weeks gestation of pregnancy
CPT/HCPCS: 36415; 76801; 80053; 81001; 84702; 85025; 87088

== ENCOUNTER 2021-11-03 20:22 | Emergency (ER) | payer OTHER ==
[~2021-11-03] VITALS: Ht 170.2 cm; Wt 113.4 kg
[~2021-11-03 20:22] MED LIST changes: +CEPH500B PO; +ONDA-104 PO
[2021-11-03 20:58] LABS: APPEARANCE,URINE SL CLOUDY (CLEAR); BILIRUBIN,URINE NEGATIVE (NEGATIVE); COLOR,URINE YELLOW (YELLOW); GLUCOSE, URINE (UA) NEGATIVE (NEGATIVE); KETONES,URINE >=80 mg/dL (NEGATIVE); LEUKOCYTE ESTERASE ,URINE LARGE (NEGATIVE); NITRATE,URINE NEGATIVE (NEGATIVE); OCCULT BLOOD,URINE TRACE-INTACT (NEGATIVE); PROTEIN,URINE NEGATIVE (NEGATIVE)
[2021-11-03 21:10] LABS: BACTERIA,URINE Moderate /HPF (None Seen); MUCUS,URINE Moderate LPF (None Seen); SQUAMOUS EPITHELIAL CELL,UR Many /HPF (0-2)
[2021-11-03 21:15] VITALS: BP 129/76
[2021-11-03 21:19] LABS: BASOPHILS % (AUTO) 0.2 % (0.0-5.0); EOSINOPHILS % (AUTO) 0.5 % (0.0-8.0); HEMATOCRIT 37.7 % (36-48); LYMPHOCYTES % (AUTO) 22.6 % (21.0-51.0); MEAN CORPUSCULAR HEMOGLOBIN 26.8 pg (27.0-33.0); MEAN CORPUSCULAR HGB CONC 33.2 g/dL (32.0-36.0); MEAN CORPUSCULAR VOLUME 80.7 fL (79-99); MONOCYTES % (AUTO) 7.9 % (3.0-13.0); NEUTROPHILS % (AUTO) 68.2 % (40.0-77.0); PLATELET COUNT (AUTO) 216 K/uL (130-400); RED BLOOD CELL COUNT(AUTO) 4.67 MIL/uL (4.00-5.50); WHITE BLOOD COUNT (AUTO) 6.3 K/uL (4.8-10.8)
[2021-11-03 21:30] LABS: CREATININE 0.5 mg/dL (0.5-1.5); POTASSIUM 3.5 mmol/L (3.5-5.1)
[2021-11-03] MEDS ORDERED: CEFTRIAXONE 1G VIAL IVP ONE (21:30)
[2021-11-03] MEDS ORDERED: PHENAZOPYRIDINE HCL 200 MG TABLET PO ONE (21:30)
[2021-11-03 21:56] LABS: ALBUMIN 2.9 g/dL (3.5-5.0); TOTAL PROTEIN, SERUM 6.7 g/dL (6.0-8.3)
[2021-11-03] MEDS ORDERED: CEPH500B PO (22:11)
[2021-11-03] MEDS ORDERED: PHEN-847 PO (22:11)
== END 2021-11-03 22:22 | disposition home or self-care (01) ==
LOC: EDH 20:22
DX: O23.42 Unspecified infection of urinary tract in pregnancy, second trimester (principal); N39.0 Urinary tract infection, site not specified; Z79.1 Long term (current) use of non-steroidal anti-inflammatories (NSAID); Z79.899 Other long term (current) drug therapy; Z3A.15 15 weeks gestation of pregnancy
CPT/HCPCS: 99284; 96374; 76801; 80053; 84702; 83690; 85025; 87088; 81001; 36415; J0696

== ENCOUNTER 2021-12-16 11:19 | Observation (INO) | payer MEDICAID, OTHER ==
[~2021-12-16] VITALS: Ht 167.6 cm; Wt 115.2 kg
[~2021-12-16 11:19] MED LIST changes: +PHEN-847 PO
[2021-12-16 12:20] VITALS: BP 107/74
[2021-12-16 12:47] LABS: APPEARANCE,URINE CLOUDY (CLEAR); BILIRUBIN,URINE NEGATIVE (NEGATIVE); COLOR,URINE YELLOW (YELLOW); GLUCOSE, URINE (UA) NEGATIVE (NEGATIVE); KETONES,URINE NEGATIVE (NEGATIVE); LEUKOCYTE ESTERASE ,URINE 500 Leu/uL (NEGATIVE); NITRATE,URINE NEGATIVE (NEGATIVE); OCCULT BLOOD,URINE NEGATIVE (NEGATIVE); PH,URINE 6.5 (5.0-8.0); PROTEIN,URINE 30 mg/dL (NEGATIVE); UROBILINOGEN,URINE 0.2 mg/dL (0.2-1.0)
[2021-12-16 12:54] LABS: BACTERIA,URINE MOD /HPF (None Seen); MUCUS,URINE FEW LPF (None Seen); SQUAMOUS EPITHELIAL CELL,UR MANY /HPF (0-2)
[2021-12-16] MEDS ORDERED: LACTATED RINGERS 1000ML 1,000 ML IV ONE (13:23)
[2021-12-16] MEDS ORDERED: CEFTRIAXONE 1G VIAL IVP SCH (13:30)
[2021-12-16] MEDS ORDERED: AMPICILLIN 2GM VIAL IV SCH (13:30)
[2021-12-16] MEDS ORDERED: CEFTRIAXONE 1G VIAL IM SCH (13:30)
[2021-12-16 14:45] LABS: HEMATOCRIT 36.2 % (36-48); MEAN CORPUSCULAR HEMOGLOBIN 26.9 pg (27.0-33.0); MEAN CORPUSCULAR HGB CONC 32.9 g/dL (32.0-36.0); MEAN CORPUSCULAR VOLUME 81.7 fL (79-99); RED BLOOD CELL COUNT(AUTO) 4.43 MIL/uL (4.00-5.50); RED CELL DISTRIBUTION WIDTH 13.9 % (11.0-15.5); WHITE BLOOD COUNT (AUTO) 8.4 K/uL (4.8-10.8)
[2021-12-16] MEDS: AMPICILLIN 2GM+NS 100ML 100 ML IV SCH ×3 (15:05→22:15)
[2021-12-16] MEDS: PROMETHAZINE HCL 25 MG/ML 1ML AMPULE IM PRN ×2 (16:14→20:47)
[2021-12-16] MEDS: MEPERIDINE-PF 50 MG/ML SYG IM PRN ×2 (16:15→20:48)
[2021-12-16 16:28] VITALS: BP 99/58
[2021-12-16 19:13] VITALS: BP 104/57
[2021-12-16] MEDS: LACTATED RINGERS 1000ML 1,000 ML IV PRN (22:21)
[2021-12-16 23:40] VITALS: BP 99/54
[2021-12-17 03:50] VITALS: BP 106/58
[2021-12-17] MEDS: PROMETHAZINE HCL 25 MG/ML 1ML AMPULE IM PRN (04:07)
[2021-12-17] MEDS: MEPERIDINE-PF 50 MG/ML SYG IM PRN (04:08)
[2021-12-17] MEDS: AMPICILLIN 2GM+NS 100ML 100 ML IV SCH (05:33)
[2021-12-17] MEDS: LACTATED RINGERS 1000ML 1,000 ML IV PRN (05:36)
[2021-12-17 07:23] VITALS: BP 95/56
== END 2021-12-17 11:05 | disposition home or self-care (01) ==
LOC: EDH 11:19 → LDH 11:20 → WSH 15:35
PROVIDERS: ADMIT Obstetrics & Gynecology; ATTEND Obstetrics & Gynecology
DX: O26.832 Pregnancy related renal disease, second trimester (principal); N12 Tubulo-interstitial nephritis, not specified as acute or chronic; Z3A.22 22 weeks gestation of pregnancy; Z98.891 History of uterine scar from previous surgery
CPT/HCPCS: 96372 ×2; 96361; 96365; 96366 ×2; 96375; 85027; 87088; 81001; 36415; G0378 ×22; G0379; J7120 ×2; J2550 ×3; J0696; J2175 ×3; J0290 ×3

== ENCOUNTER 2022-03-26 16:28 | Observation (INO) | payer OTHER ==
[~2022-03-26] VITALS: Ht 157.5 cm; Wt 112.9 kg
[~2022-03-26 16:28] MED LIST changes: -ACET-66 PO; -ALPR0.25 PO; -CEPH500B PO; -IBUP-2070 PO; -ONDA-104 PO; -PHEN-847 PO
[2022-03-26 16:55] VITALS: BP 125/83
[2022-03-26 18:38] LABS: APPEARANCE,URINE CLEAR (CLEAR); BILIRUBIN,URINE NEGATIVE (NEGATIVE); COLOR,URINE YELLOW (YELLOW); GLUCOSE, URINE (UA) NEGATIVE (NEGATIVE); KETONES,URINE NEGATIVE (NEGATIVE); LEUKOCYTE ESTERASE ,URINE 500 Leu/uL (NEGATIVE); NITRATE,URINE NEGATIVE (NEGATIVE); OCCULT BLOOD,URINE NEGATIVE (NEGATIVE); PROTEIN,URINE 30 mg/dL (NEGATIVE); UROBILINOGEN,URINE 0.2 mg/dL (0.2-1.0)
[2022-03-26 18:44] LABS: BACTERIA,URINE FEW /HPF (None Seen); MUCUS,URINE MOD LPF (None Seen); SQUAMOUS EPITHELIAL CELL,UR MOD /HPF (0-2)
[2022-03-26] MEDS ORDERED: MEPERIDINE-PF 50 MG/ML SYG IVP PRN (19:00)
[2022-03-26] MEDS ORDERED: PROMETHAZINE HCL 25 MG/ML 1ML AMPULE IM PRN ×2 (19:00→22:00)
[2022-03-26 19:22] LABS: AMPHET/METH SCREEN,URINE NEGATIVE (NEGATIVE); BARBITURATE SCREEN, URINE NEGATIVE (NEGATIVE); BENZODIAZEPINES SCREEN,URINE NEGATIVE (NEGATIVE); CANNABINOID SCREEN,URINE NEGATIVE (NEGATIVE); COCAINE SCREEN,URINE NEGATIVE (NEGATIVE); OPIATE SCREEN,URINE NEGATIVE (NEGATIVE); PHENCYCLIDINE SCREEN,URINE NEGATIVE (NEGATIVE)
[2022-03-26] MEDS: LACTATED RINGERS 1000ML IV SCH ×2 (19:42→22:02)
[2022-03-26] MEDS ORDERED: TERBUTALINE SULFATE VIAL 1MG/ML SQ ONE (21:45)
[2022-03-26] MEDS ORDERED: MEPERIDINE-PF 50 MG/ML SYG IM PRN (22:00)
[2022-03-26] MEDS ORDERED: TERBUTALINE SULFATE VIAL 1MG/ML SQ SCH (22:00)
[2022-03-26] MEDS ORDERED: LACTATED RINGERS 1000ML 1,000 ML IV SCH (22:00)
[2022-03-27] MEDS ORDERED: ACETAMINOPHEN 500 MG TABLET PO PRN
[2022-03-27] MEDS ORDERED: MEPERIDINE-PF 50 MG/ML SYG IVP PRN (02:00)
== END 2022-03-27 00:55 | disposition home or self-care (01) ==
LOC: EDH 16:28 → LDH 17:06
PROVIDERS: ADMIT Obstetrics & Gynecology; ATTEND Obstetrics & Gynecology
DX: O26.893 Other specified pregnancy related conditions, third trimester (principal); R51.9 Headache, unspecified; O99.891 Other specified diseases and conditions complicating pregnancy; H93.19 Tinnitus, unspecified ear; M54.9 Dorsalgia, unspecified; O23.593 Infection of other part of genital tract in pregnancy, third trimester; Z3A.36 36 weeks gestation of pregnancy
CPT/HCPCS: 96374; 96361 ×3; 96372 ×2; 80305; 87088; 81001; G0378 ×8; G0379; J7120; J3105; J2550; J2175; 96360

== ENCOUNTER 2022-04-02 20:46 | Observation (INO) | payer OTHER ==
[~2022-04-02] VITALS: Ht 167.6 cm; Wt 117.0 kg
[2022-04-02] MEDS ORDERED: LACTATED RINGERS 1000ML 1,000 ML IV SCH ×2 (21:30→23:30)
[2022-04-02 21:40] LABS: APPEARANCE,URINE CLOUDY (CLEAR); BILIRUBIN,URINE NEGATIVE (NEGATIVE); COLOR,URINE LIGHT-YELLOW (YELLOW); GLUCOSE, URINE (UA) NEGATIVE (NEGATIVE); KETONES,URINE NEGATIVE (NEGATIVE); LEUKOCYTE ESTERASE ,URINE 500 Leu/uL (NEGATIVE); NITRATE,URINE NEGATIVE (NEGATIVE); OCCULT BLOOD,URINE NEGATIVE (NEGATIVE); PH,URINE 6.5 (5.0-8.0); PROTEIN,URINE 20 mg/dL (NEGATIVE); UROBILINOGEN,URINE 0.2 mg/dL (0.2-1.0)
[2022-04-02 21:47] LABS: AMPHET/METH SCREEN,URINE NEGATIVE (NEGATIVE); BARBITURATE SCREEN, URINE NEGATIVE (NEGATIVE); BENZODIAZEPINES SCREEN,URINE NEGATIVE (NEGATIVE); CANNABINOID SCREEN,URINE NEGATIVE (NEGATIVE); COCAINE SCREEN,URINE NEGATIVE (NEGATIVE); OPIATE SCREEN,URINE NEGATIVE (NEGATIVE); PHENCYCLIDINE SCREEN,URINE NEGATIVE (NEGATIVE)
[2022-04-02 21:49] LABS: BACTERIA,URINE RARE /HPF (None Seen); MUCUS,URINE RARE LPF (None Seen); SQUAMOUS EPITHELIAL CELL,UR MANY /HPF (0-2); TRANSITIONAL EPI CELLS,URINE RARE /HPF (None Seen); YEAST,URINE BUDDING RARE /HPF (None Seen)
[2022-04-02 22:41] LABS: BASOPHILS % (AUTO) 0.2 % (0.0-5.0); EOSINOPHILS % (AUTO) 0.1 % (0.0-8.0); HEMATOCRIT 37.4 % (36-48); MEAN CORPUSCULAR HEMOGLOBIN 25.4 pg (27.0-33.0); MEAN CORPUSCULAR HGB CONC 31.6 g/dL (32.0-36.0); MEAN CORPUSCULAR VOLUME 80.6 fL (79-99); MONOCYTES % (AUTO) 9.5 % (3.0-13.0); NEUTROPHILS % (AUTO) 72.7 % (40.0-77.0); PLATELET COUNT (AUTO) 247 K/uL (130-400); RED BLOOD CELL COUNT(AUTO) 4.64 MIL/uL (4.00-5.50); RED CELL DISTRIBUTION WIDTH 14.3 % (11.0-15.5); WHITE BLOOD COUNT (AUTO) 8.6 K/uL (4.8-10.8)
[2022-04-02 22:52] LABS: CREATININE 0.6 mg/dL (0.5-1.5); POTASSIUM 3.8 mmol/L (3.5-5.1)
[2022-04-02 22:53] LABS: INR 0.93 (0.85-1.15); PROTHROMBIN TIME 9.2 SEC (9.6-11.6)
[2022-04-02 22:55] LABS: PARTIAL THROMBOPLASTIN TIME 23.9 SEC (26.3-35.5)
[2022-04-02 22:56] LABS: ALBUMIN 2.4 g/dL (3.5-5.0); TOTAL PROTEIN, SERUM 6.9 g/dL (6.0-8.3); URIC ACID 2.6 mg/dL (2.6-7.2)
[2022-04-02] MEDS ORDERED: CEFTRIAXONE 1G VIAL IVP ONE (23:30)
[2022-04-02] MEDS: TERBUTALINE SULFATE VIAL 1MG/ML SQ SCH (23:56)
[2022-04-03] MEDS ORDERED: ACETAMINOPHEN 500 MG TABLET PO PRN
[2022-04-03] MEDS: TERBUTALINE SULFATE VIAL 1MG/ML SQ SCH (00:48)
[2022-04-03] MEDS ORDERED: BUTORPHANOL TARTRATE 2 MG/ML ONE (01:02)
[2022-04-03] MEDS ORDERED: BUTORPHANOL TARTRATE 2 MG/ML IVP ONE ×2 (01:30→04:30)
[2022-04-03 04:45] VITALS: BP 122/56
== END 2022-04-03 07:50 | disposition home or self-care (01) ==
LOC: EDH 20:46 → LDH 20:47
PROVIDERS: ADMIT Obstetrics & Gynecology; ATTEND Obstetrics & Gynecology
DX: O23.43 Unspecified infection of urinary tract in pregnancy, third trimester (principal); Z20.822 Contact with and (suspected) exposure to COVID-19; O26.893 Other specified pregnancy related conditions, third trimester; R51.9 Headache, unspecified; R42 Dizziness and giddiness; O99.891 Other specified diseases and conditions complicating pregnancy; M54.50 Low back pain, unspecified; H53.8 Other visual disturbances; Z3A.37 37 weeks gestation of pregnancy; Z98.891 History of uterine scar from previous surgery
CPT/HCPCS: 96374; 96372 ×2; 84550; 80053; 80305; 85025; 85384; 85610; 85730; 86592; 86850; 86900; 86901; 87088; 87340; 81001; 36415; 96376; 96361 ×2; 96375; 87635; G0378 ×11; G0379; J3105; J0696; J7120; J0595 ×2; 96360

== ENCOUNTER 2022-11-07 13:51 | Emergency (ER) | payer MEDICAID, OTHER ==
[~2022-11-07] VITALS: Ht 170.2 cm; Wt 104.3 kg
[2022-11-07 13:52] VITALS: BP 138/50; PULSE 77; RESP 20
[2022-11-07 14:10] LABS: BASOPHILS # (AUTO) 0.02 K/uL (0.00-0.20); BASOPHILS % (AUTO) 0.3 % (0.0-5.0); EOSINOPHILS % (AUTO) 1.5 % (0.0-8.0); HEMATOCRIT 41.9 % (36-48); IMMATURE GRANULOCYTE ABSOLUTE 0.03 K/uL (0-1); LYMPHOCYTES # (AUTO) 1.7 K/uL (1.0-4.8); LYMPHOCYTES % (AUTO) 25.6 % (21.0-51.0); MEAN CORPUSCULAR HEMOGLOBIN 25.4 pg (27.0-33.0); MEAN CORPUSCULAR HGB CONC 31.7 g/dL (32.0-36.0); MONOCYTES # (AUTO) 0.5 K/uL (0.1-1.0); NEUTROPHILS # (AUTO) 4.3 K/uL (1.8-7.7); NEUTROPHILS % (AUTO) 64.2 % (40.0-77.0); PLATELET COUNT (AUTO) 323 K/uL (130-400); RED BLOOD CELL COUNT(AUTO) 5.24 MIL/uL (4.00-5.50); RED CELL DISTRIBUTION WIDTH 14.5 % (11.0-15.5); WHITE BLOOD COUNT (AUTO) 6.8 K/uL (4.8-10.8)
[2022-11-07 14:24] LABS: CARBON DIOXIDE 29 mmol/L (21-32); CHLORIDE 104 mmol/L (101-111); CREATININE 0.7 mg/dL (0.5-1.5); GLOMERULAR FILTR. RATE CALC 117 mL/min (>90); GLUCOSE,RANDOM 96 mg/dL (70-105); POTASSIUM 3.7 mmol/L (3.5-5.1); SODIUM SERUM 140 mmol/L (136-145); UREA NITROGEN, BLOOD 13 mg/dL (7-18)
[2022-11-07 14:39] LABS: ALANINE AMINOTRANSFERASE 33 U/L (12-78); ALBUMIN 3.4 g/dL (3.5-5.0); ASPARTATE AMINOTRANSFERASE 24 U/L (10-37); BILIRUBIN,TOTAL 0.4 mg/dL (0.2-1.0); CREATINE KINASE, TOTAL 67 U/L (21-232); MYOGLOBIN 26 ng/mL (10-92); TOTAL PROTEIN, SERUM 7.4 g/dL (6.0-8.3)
[2022-11-07 17:02] LABS: BILIRUBIN,URINE NEGATIVE (NEGATIVE); GLUCOSE, URINE (UA) NEGATIVE (NEGATIVE); KETONES,URINE NEGATIVE (NEGATIVE); LEUKOCYTE ESTERASE ,URINE NEGATIVE Leu/uL (NEGATIVE); NITRATE,URINE NEGATIVE (NEGATIVE); OCCULT BLOOD,URINE NEGATIVE (NEGATIVE); PH,URINE 5.5 (5.0-8.0); PROTEIN,URINE NEGATIVE (NEGATIVE); UROBILINOGEN,URINE 0.2 mg/dL (0.2-1.0)
[2022-11-07 17:13] LABS: ADD UA MICROSCOPIC YES; APPEARANCE,URINE HAZY (CLEAR); COLOR,URINE YELLOW (YELLOW)
[2022-11-07 17:15] LABS: BACTERIA,URINE RARE /HPF (None Seen); MUCUS,URINE FEW LPF (None Seen); RBC,URINE 0-1 /HPF (0-1); SQUAMOUS EPITHELIAL CELL,UR MANY /HPF (0-2); WBC,URINE 0-1 /HPF (0-1)
[2022-11-07] MEDS ORDERED: IBUP-2070 PO (17:38)
[2022-11-07] MEDS ORDERED: CYCL5TAB PO (17:38)
[2022-11-07] MEDS ORDERED: KETOROLAC 60 MG VIAL (30MG/ML) IM ONE (18:00)
== END 2022-11-07 17:48 | disposition home or self-care (01) ==
LOC: EDH 13:51
DX: S39.012A Strain of muscle, fascia and tendon of lower back, initial encounter (principal); I10 Essential (primary) hypertension; Z98.890 Other specified postprocedural states; X58.XXXA Exposure to other specified factors, initial encounter; Y93.89 Activity, other specified; Y92.89 Other specified places as the place of occurrence of the external cause; Y99.8 Other external cause status
CPT/HCPCS: 99285; 71045; 82550; 83874; 84484 ×2; 80053; 84702; 83690; 85025; 81001; 36415; 96372; 93005; J1885

== ENCOUNTER 2023-09-28 10:17 | Emergency (ER) | payer OTHER ==
[~2023-09-28] VITALS: Ht 157.5 cm; Wt 108.9 kg
[~2023-09-28 10:17] MED LIST changes: +CYCL5TAB PO; +IBUP-2070 PO
[2023-09-28 11:12] LABS: APPEARANCE,URINE CLOUDY (CLEAR); BILIRUBIN,URINE NEGATIVE (NEGATIVE); COLOR,URINE LIGHT-YELLOW (YELLOW); GLUCOSE, URINE (UA) NEGATIVE (NEGATIVE); KETONES,URINE NEGATIVE (NEGATIVE); LEUKOCYTE ESTERASE ,URINE NEGATIVE Leu/uL (NEGATIVE); NITRATE,URINE NEGATIVE (NEGATIVE); OCCULT BLOOD,URINE NEGATIVE (NEGATIVE); PROTEIN,URINE 10 mg/dL (NEGATIVE); UROBILINOGEN,URINE 0.2 mg/dL (0.2-1.0)
[2023-09-28] MEDS: ONDANSETRON 4MG INJ IVP ONE (11:14)
[2023-09-28] MEDS: 0.9%NACL 1000ML 1,000 ML IV ONE (11:14)
[2023-09-28 11:20] LABS: ADD UA MICROSCOPIC YES; HCG,QUALITATIVE URINE NEGATIVE (NEGATIVE)
[2023-09-28 11:23] LABS: MUCUS,URINE RARE LPF (None Seen); RBC,URINE 0-1 /HPF (0-1); SQUAMOUS EPITHELIAL CELL,UR MANY /HPF (0-2); WBC,URINE 0-1 /HPF (0-1)
[2023-09-28 11:30] LABS: BASOPHILS # (AUTO) 0.03 K/uL (0.00-0.20); BASOPHILS % (AUTO) 0.5 % (0.0-5.0); EOSINOPHILS # (AUTO) 0.09 K/uL (0.00-0.70); EOSINOPHILS % (AUTO) 1.6 % (0.0-8.0); HEMATOCRIT 40.8 % (36-48); IMMATURE GRANULOCYTE ABSOLUTE 0.04 K/uL (0-1); LYMPHOCYTES # (AUTO) 1.4 K/uL (1.0-4.8); LYMPHOCYTES % (AUTO) 24.5 % (21.0-51.0); MEAN CORPUSCULAR HEMOGLOBIN 26.4 pg (27.0-33.0); MEAN CORPUSCULAR HGB CONC 31.9 g/dL (32.0-36.0); MEAN CORPUSCULAR VOLUME 82.8 fL (79-99); MONOCYTES # (AUTO) 0.4 K/uL (0.1-1.0); NEUTROPHILS # (AUTO) 3.7 K/uL (1.8-7.7); NEUTROPHILS % (AUTO) 65.7 % (40.0-77.0); PLATELET COUNT (AUTO) 281 K/uL (130-400); RED BLOOD CELL COUNT(AUTO) 4.93 MIL/uL (4.00-5.50); RED CELL DISTRIBUTION WIDTH 14.2 % (11.0-15.5); WHITE BLOOD COUNT (AUTO) 5.6 K/uL (4.8-10.8)
[2023-09-28 11:38] LABS: CREATININE 0.6 mg/dL (0.5-1.0)
[2023-09-28 11:43] LABS: ALBUMIN 3.3 g/dL (3.5-5.0); BILIRUBIN,TOTAL 0.3 mg/dL (0.2-1.0); TOTAL PROTEIN, SERUM 7.1 g/dL (6.0-8.3)
[2023-09-28] MEDS ORDERED: IOHEXOL-350 75 ML VIAL IV ONE (14:03)
[2023-09-28] MEDS ORDERED: CEPH500T PO (15:08)
[2023-09-28] MEDS: CEFTRIAXONE 2GM VIAL IVPB ONE (15:23)
[2023-09-28] MEDS: KETOROLAC 30MG VIAL (30MG/ML) IM ONE (15:24)
[2023-09-28 15:55] VITALS: BP 110/62; PULSE 77; RESP 16; O2SAT 97
== END 2023-09-28 16:00 | disposition home or self-care (01) ==
LOC: EDH 10:17
DX: N39.0 Urinary tract infection, site not specified (principal); I10 Essential (primary) hypertension; Z90.49 Acquired absence of other specified parts of digestive tract
CPT/HCPCS: 99285; 74177; 96365; 96375; 80053; 83690; 85025; 81001; 81025; 36415; 96372; J7030; J0696; J2405; J1885; Q9967